=== PATIENT | female | born 1950 | race Caucasian/White ===

== ENCOUNTER → 2017-02-18 | Outpatient (CLI) | payer MEDICARE, OTHER ==
[~2017-02-18] MED LIST: ASPIRIN CHEWABL81 MG PO; CATAPRES 0.1MG0.1 MG PO; DISALCID750 MG PO; EFFEXOR XR75 MG PO; KEFLEX CAP 500500 MG PO; LOSARTAN POTAS100 MG PO; MECLIZINE HCL25 MG PO; MIRALAX17 GM PO; NORTRIPTYLINE H25 MG PO; OMEPRAZOLE MAGN20 MG PO; PERCOCET 5/325 T1 EA PO; PLAVIX 75 MG TA75 MG PO; PRAVACHOL80 MG PO; SALSALATE750 MG PO; TAZTIA XT360 MG PO; TRAMADOL HCL50 MG PO; VITAMIN C500 M1 PO; VITAMIN D250000 UNIT PO; ZOFRAN4 MG PO; ZYRTEC10 M3 PO
== END ==
LOC: KOH-I 02-16 14:30
DX: Z00.00 Encounter for general adult medical examination without abnormal findings (principal); M79.671 Pain in right foot; M24.551 Contracture, right hip
CPT/HCPCS: 73700; 93922; 93925

== ENCOUNTER → 2017-04-02 | Outpatient (CLI) | payer MEDICARE, OTHER ==
[2017-04-02 10:41] LABS: HEMOGLOBIN 13.4 gm/dl (12.3-15.3); RED BLOOD COUNT 4.47 M/UL (4.00-5.10); WHITE BLOOD COUNT 6.7 K/UL (4.5-11.0)
[2017-04-02 10:57] LABS: BUN/CREATININE RATIO 14 (0-10)
== END ==
LOC: OPSV2 10:13
PROVIDERS: Podiatrist Foot & Ankle Surgery
DX: Z01.812 Encounter for preprocedural laboratory examination (principal); M20.11 Hallux valgus (acquired), right foot
CPT/HCPCS: 36415; 80048; 82652; 85025

== ENCOUNTER 2017-04-10 07:20 | Day surgery (SDC) | payer MEDICARE, OTHER ==
[~2017-04-10] VITALS: Ht 160 cm; Wt 75.3 kg
[2017-04-10] MEDS ORDERED: CATAPRES 0.1MG0.1 MG PO (07:50)
[2017-04-10] MEDS ORDERED: LOSARTAN POTAS100 MG PO (07:50)
[2017-04-10] MEDS ORDERED: TAZTIA XT360 MG PO (07:50)
[2017-04-10] MEDS ORDERED: EFFEXOR XR75 MG PO (07:51)
[2017-04-10] MEDS ORDERED: DISALCID750 MG PO (07:51)
[2017-04-10] MEDS ORDERED: PLAVIX 75 MG TA75 MG PO (07:51)
[2017-04-10] MEDS ORDERED: ZYRTEC10 M3 PO (07:52)
[2017-04-10] MEDS ORDERED: VITAMIN D250000 UNIT PO (07:52)
[2017-04-10] MEDS ORDERED: ASPIRIN CHEWABL81 MG PO (07:53)
[2017-04-10] MEDS ORDERED: OMEPRAZOLE MAGN20 MG PO (07:53)
[2017-04-10] MEDS ORDERED: PRAVACHOL80 MG PO (07:53)
[2017-04-10] MEDS ORDERED: TRAMADOL HCL50 MG PO (07:54)
[2017-04-10] MEDS ORDERED: NORTRIPTYLINE H25 MG PO (07:54)
[2017-04-10] MEDS ORDERED: MECLIZINE HCL25 MG PO (07:55)
[2017-04-10] MEDS ORDERED: MIRALAX17 GM PO (07:56)
[2017-04-10] MEDS ORDERED: SALSALATE750 MG PO (07:57)
[2017-04-11] MEDS ORDERED: KEFLEX CAP 500500 MG PO (14:02)
[2017-04-11] MEDS ORDERED: ZOFRAN4 MG PO (14:04)
[2017-04-11] MEDS ORDERED: VITAMIN C500 M1 PO (14:05)
[2017-04-11] MEDS ORDERED: PERCOCET 5/325 T1 EA PO (14:08)
== END 2017-04-11 15:28 | disposition home or self-care (01) ==
LOC: OR 07:20 → M/S 17:46 → OR 04-11 15:28
PROVIDERS: Podiatrist Foot & Ankle Surgery
PROC: 0SSM0ZZ Reposition Right Metatarsal-Phalangeal Joint, Open Approach (ICD-10-PCS; 2017-04-10)
PROC: 0SGP0ZZ (ICD-10-PCS; 2017-04-10)
PROC: 0LNV0ZZ Release Right Foot Tendon, Open Approach (ICD-10-PCS; 2017-04-10)
PROC: 0HDRXZZ Extraction of Toe Nail, External Approach (ICD-10-PCS; 2017-04-10)
PROC: 0LNV0ZZ Release Right Foot Tendon, Open Approach (ICD-10-PCS; 2017-04-10)
PROC: 0QBQ0ZZ Excision of Right Toe Phalanx, Open Approach (ICD-10-PCS; principal; 2017-04-10 09:30)
PROC: 0QBQ0ZZ Excision of Right Toe Phalanx, Open Approach (ICD-10-PCS; 2017-04-10 09:30)
PROC: 0QSN04Z Reposition Right Metatarsal with Internal Fixation Device, Open Approach (ICD-10-PCS; 2017-04-10 09:30)
DX: M20.11 Hallux valgus (acquired), right foot (principal); M21.961 Unspecified acquired deformity of right lower leg; S93.124A Dislocation of metatarsophalangeal joint of right lesser toe(s), initial encounter; M20.41 Other hammer toe(s) (acquired), right foot; B35.1 Tinea unguium; M20.5X1 Other deformities of toe(s) (acquired), right foot; I10 Essential (primary) hypertension; M19.90 Unspecified osteoarthritis, unspecified site; G89.29 Other chronic pain; M54.9 Dorsalgia, unspecified; K21.9 Gastro-esophageal reflux disease without esophagitis; E78.2 Mixed hyperlipidemia; Z79.899 Other long term (current) drug therapy
CPT/HCPCS: 73620; 73630; 76000; 93005; J0690; J1200; J2250; J2270; J2405; J2795; J3010; J7120